=== PATIENT | female | born 1960 | race Caucasian/White ===

== ENCOUNTER 2020-12-14 12:53 | Outpatient (CLI) | payer OTHER | END 2020-12-14 12:54 | disposition home or self-care (01) | LOC: CSHMAMMO 12:53 | PROVIDERS: ATTEND Obstetrics & Gynecology | DX: Q83.9 Congenital malformation of breast, unspecified (principal) | CPT/HCPCS: G0279 ==

== ENCOUNTER 2023-01-17 10:02 | Outpatient (CLI) | payer OTHER | END 2023-01-17 10:03 | disposition home or self-care (01) | LOC: CSHMAMMO 10:02 | PROVIDERS: ATTEND Obstetrics & Gynecology | DX: Z12.31 Encounter for screening mammogram for malignant neoplasm of breast (principal); Z80.3 Family history of malignant neoplasm of breast | CPT/HCPCS: 77063; 77067 ==

== ENCOUNTER 2024-01-29 12:11 | Outpatient (CLI) | payer OTHER | END 2024-01-29 12:12 | disposition home or self-care (01) | LOC: CSHMAMMO 12:11 | PROVIDERS: ATTEND Obstetrics & Gynecology | DX: Z12.31 Encounter for screening mammogram for malignant neoplasm of breast (principal); Z80.3 Family history of malignant neoplasm of breast | CPT/HCPCS: 77063; 77067 ==